=== PATIENT | female | born 1945 | race Caucasian/White ===

== ENCOUNTER → 2019-09-16 | Outpatient (CLI) | payer MEDICARE ==
[~2019-09-16] MED LIST: IOHEXOL 350 MG/ML 100ML INFUS..BTL IV ONE
== END | disposition home or self-care (01) ==
LOC: RAH 07:47
PROVIDERS: ATTEND Internal Medicine Cardiovascular Disease
DX: I10 Essential (primary) hypertension (principal); I48.91 Unspecified atrial fibrillation; J98.11 Atelectasis; K86.89 Other specified diseases of pancreas; M47.816 Spondylosis without myelopathy or radiculopathy, lumbar region
CPT/HCPCS: 74175; Q9967

== ENCOUNTER → 2019-10-04 | Outpatient (CLI) | payer MEDICARE | END | disposition home or self-care (01) | LOC: SHCH 14:04 → EDUNIT# 14:30 | PROVIDERS: ATTEND Internal Medicine Cardiovascular Disease | DX: I48.91 Unspecified atrial fibrillation (principal) | CPT/HCPCS: 93306 ==

== ENCOUNTER 2021-11-19 08:23 | Day surgery (SDC) | payer MEDICARE ==
[2021-11-18 16:27] LABS: BASOPHILS % (AUTO) 1.2 % (0.0-5.0); HEMATOCRIT 38.1 % (36-48); LYMPHOCYTES % (AUTO) 20.4 % (21.0-51.0); MEAN CORPUSCULAR HEMOGLOBIN 31.5 pg (27.0-33.0); MEAN CORPUSCULAR HGB CONC 32.8 g/dL (32.0-36.0); MONOCYTES % (AUTO) 14.3 % (3.0-13.0); PLATELET COUNT (AUTO) 235 K/uL (130-400); RED BLOOD CELL COUNT(AUTO) 3.97 MIL/uL (4.00-5.50); RED CELL DISTRIBUTION WIDTH 12.9 % (11.0-15.5); WHITE BLOOD COUNT (AUTO) 7.8 K/uL (4.8-10.8)
[2021-11-18 16:28] VITALS: BP 128/59
[2021-11-18 16:35] LABS: POTASSIUM 4.4 mmol/L (3.5-5.1)
[2021-11-18 16:39] LABS: INR 1.07 (0.85-1.15); PROTHROMBIN TIME 11.6 SEC (9.6-11.6)
[2021-11-18 16:40] LABS: PARTIAL THROMBOPLASTIN TIME 30.6 SEC (26.3-35.5)
[2021-11-19] VITALS (10 sets, daily range): BP systolic 106–146; BP diastolic 34–55
[~2021-11-19] VITALS: Ht 152.4 cm; Wt 61.2 kg
[~2021-11-19 08:23] MED LIST changes: +0.9%NACL 1000ML 1,000 ML IV SCH; +AMLO2.5T4 PO; +APIX5TAB PO; +CALC-1105 PO; +DIGO250T73 PO; +DULO60CA45 PO; +FLEC150T2 PO; +FLUT16H NASAL; +GABA300C PO; +GUAIFENESIN PO; -IOHEXOL 350 MG/ML 100ML INFUS..BTL IV ONE; +LOSA50TA64 PO; +METO-409 PO; +MVIT PO; +POTA-79 PO; +RISP0.5T66 PO; +RISP1TAB98 PO; +TORS10TA18 PO; +VITAMIN D3 PO
[2021-11-19] MEDS ORDERED: NALOXONE HCL 0.4 MG/1 ML ML ONE (09:21)
[2021-11-19] MEDS ORDERED: FLUMAZENIL 0.1MG/1ML 5ML VIAL IV ONE (09:21)
[2021-11-19] MEDS ORDERED: LIDOCAINE HCL 2% VISCOUS 15 ML UDCUP ONE (09:21)
[2021-11-19] MEDS ORDERED: MIDAZOLAM HCL 1 MG/ML 2ML VIAL ONE (09:22)
[2021-11-19] MEDS ORDERED: FENTANYL CITRATE PF 50 MCG/1 ML 2ML VIAL ONE (09:22)
[2021-11-19] MEDS ORDERED: AEC81 PO (09:49)
[2021-11-19] MEDS ORDERED: ATOR40TA69 PO (09:49)
[2021-11-19] MEDS ORDERED: DIGO125T71 PO (09:49)
[2021-11-19] MEDS ORDERED: MIDAZOLAM HCL 1 MG/ML 2ML VIAL IVPB ONE (12:30)
[2021-11-19] MEDS ORDERED: FENTANYL CITRATE PF 50 MCG/1 ML 2ML VIAL IVP ONE (12:30)
== END 2021-11-19 11:28 | disposition home or self-care (01) ==
LOC: DAH 08:23
PROVIDERS: ATTEND Student in an Organized Health Care Education/Training Program
DX: G45.9 Transient cerebral ischemic attack, unspecified (principal); I48.0 Paroxysmal atrial fibrillation; I50.9 Heart failure, unspecified; Z88.1 Allergy status to other antibiotic agents; Z79.01 Long term (current) use of anticoagulants; Z79.899 Other long term (current) drug therapy
CPT/HCPCS: 36415; 80048; 85025; 85610; 85730; 93005; 93312; 96374; A4215; A4216; A4221; A4222; A4223 ×3; A4606; A4615; A4663; A7002; J2250; J3010; J7030; 99152; J2310; J3490